=== PATIENT | female | born 1955 | race Two or more races ===

== ENCOUNTER 2020-10-10 05:00 | Day surgery (SDC) | payer OTHER ==
[~2020-10-10 05:00] MED LIST: FENOFIBRA PO; FOLIC A PO; SIMVAST PO; SYNTHROID88 MCG PO; VITAMIN D PO
== END 2020-10-10 12:35 | disposition home or self-care (01) ==
LOC: CIR.AMB 05:00
PROVIDERS: ATTEND Orthopaedic Surgery Hand Surgery
DX: M19.242 Secondary osteoarthritis, left hand (principal); M65.842 Other synovitis and tenosynovitis, left hand; Z20.822 Contact with and (suspected) exposure to COVID-19

== ENCOUNTER 2024-07-14 12:19 | Outpatient (CLI) | payer OTHER | END 2024-07-14 12:26 | disposition home or self-care (01) | LOC: MRI 12:19 | PROVIDERS: ATTEND Internal Medicine | DX: M17.0 Bilateral primary osteoarthritis of knee (principal) | CPT/HCPCS: 73721 ==